=== PATIENT | female | born 1985 | race Caucasian/White ===

== ENCOUNTER → 2017-11-07 | Day surgery (SDC) | payer OTHER ==
[~2017-11-07] VITALS: Ht 157.5 cm; Wt 59.0 kg
[~2017-11-07] MED LIST: *HYDROmorphone PF 1 MG VIAL PERIprocedural Use ONLY ONE; *MEPERIDINE 25 MG INJ VIAL PERIprocedural Use ONLY ONE; *PROMETHAZINE 25 MG/ML VIAL PERIprocedural use ONLY ONE; ACETAMINOPHEN 325MG/HYDROcodone 7.5MG/15ML UDC ONE; CHLORHEXIDINE GLUCONATE 2 % 1 PACK (2 CLOTHS) TOPICAL PRN; CLINDAMYCIN 600 MG/NS PREMIX 50 ML IV PRN; DOXY0.02 PO; FAMOTIDINE 20 MG/2 ML VIAL ONE; HYDR1SOL3 PO; IBUP1TAB5 PO; LACTATED RINGER'S 1000 ML IV PRN; LACTCAP8 PO; LEVA500T33 PO; LIDOCAINE 1%/EPINEPHrine 1:100,000 SOLN 30 ML VIAL ONE; LIDOCAINE HCL 1% PF 5 ML SYRINGE OTHER ONE; METOPROLOL TARTRATE 25 MG TAB PO PRN; MICROFIBRILLAR COLLAGEN HEMOSTAT 1 GM PKT ONE; MIDAZOLAM HCL 2 MG/2 ML VIAL ONE; MONT10TA4 PO; MORPHINE SULFATE 8 MG/ML INJ ONE; OXYMETAZOLINE HCL 0.05% 15 ML NASAL SPRAY ONE; POVIDONE IODINE 5% (ANTISEPSIS KIT) 4 APPLICATIONS EACH NARE PRN; PROM1SUP7 RECTAL; PROPOFOL 200 MG/20 ML AMP IV ONE; SODIUM CHLORID 0.9% 500 ML IV PRN; UNIS25TA3 PO
[2017-11-07 12:31] VITALS: PULSE 94
[2017-11-07 13:30] VITALS: TEMP 97.6
[2017-11-07 16:00] VITALS: BP 143/101; PULSE 75; RESP 16; O2SAT 100
--- NOTE | 2017-11-17 08:14 | MP ---
cc: WESLEY RUTH MD DATE OF SURGERY 11/07/[address] Wesley ruth PREOPERATIVE DIAGNOSIS 1. Chronic pansinusitis 2. Nasal airway obstruction 3. Nasal septal deviation 4. Hypertrophy of inferior turbinates 5. Adenotonsillar hypertrophy 6. Chronic tonsillitis POSTOPERATIVE DIAGNOSIS 1. Chronic pansinusitis 2. Nasal airway obstruction 3. Nasal septal deviation 4. Hypertrophy of inferior turbinates 5. Adenotonsillar hypertrophy 6. Chronic tonsillitis OPERATION PERFORMED 1. Open repair nasal septal fracture. 2. Bilateral submucosal resection of inferior turbinates 3. Bilateral maxillary antrostomy 4. Bilateral endoscopic exploration of frontal sinus duct with balloon dilation 5. Bilateral endoscopic sphenoidotomy with balloon dilation 6. Adenotonsillectomy INDICATIONS Documented in the history and physical. DESCRIPTION OF OPERATION The patient was taken to OR #2 and placed in the supine position. Following induction of general anesthesia and intubation, the nose was packed bilaterally with cotton pledgets saturated in 0.05% Oxymetazoline. The septal mucosa and inferior turbinates were injected with a total of 80 mL of 1% Xylocaine with epinephrine 1:100,000. She was then prepped and draped for surgery. The packing was removed and a hemitransfixion incision was made in the left nasal vestibule and through this incision the mucosa of septum was elevated bilaterally as far as the junction of the bony and cartilaginous septum. This exposed the quadrangular cartilage which showed evidence of old septal fracture. Comminuted fragments of the fracture cartilage were extending into the nasal airway bilaterally. An accumulative area of 1.5 x 2 cm was removed preserving 1.5 cm dorsal and caudal cartilaginous struts. When this was completed, the mucosa was elevated from the bony septum and the maxillary crest and these were removed using Luis Ferguson forceps. The incision was then closed with a running suture of 4-0 chromic and the mucosal layers of the septum were approximated to each other with a quilting stitch of 4-0 plain gut. The inferior turbinates were then fractured out medially and stab incisions were made along their inferior surfaces through these incisions. The submucosal soft tissue was reduced using a curette and preserving the conchal bone. The incision was then cauterized using the suction Bovie at 35 mills and the remnants of the inferior turbinates were then outfractured using a Javier nasal speculum. From this point, the operation within the nose was completed using endoscopic visualization. Additional injections of lidocaine and epinephrine were made into the middle turbinates, the uncinate processes and the ethmoid cells and then beginning with the left side, the dilations of sinus ducts was undertaken. The left frontal was addressed first with the guidewire advanced into the left frontal duct and sinus and the balloon advanced over the guidewire and inflated to a pressure of 12 atmospheres superiorly at the midpoint and at the inferior limit of the frontal duct at each level to a pressure of 12 atmospheres. The balloon was then removed and the duct was verified patent all the way into the frontal sinus. The right frontal duct was then also operated in the same fashion. It was verified patent. Next, the maxillary sinuses ostia were dilated using the balloon technique. A guidewire was advanced through the infundibulum into the left maxillary sinus. The balloon was then advanced into the maxillary infundibulum and inflated to a pressure of 12 atmospheres. It was then removed and the right side was operated in the same fashion. Lastly, the balloon technique was used to dilate the sphenoid sinus ostia. These were verified patent using a 0 degrees scope. The balloon was then removed. All sinuses were then irrigated with saline and were suctioned. The nose was then packed with 5.5 cm rapid rhino packs inflated with 5 mL of air. The table was then turned 90 degrees and a shoulder roll and McIvor mouth gag were put in placed and the adenotonsillectomy was undertaken. Using the Coblator technique, the tonsils were removed on both sides. There were small areas of bleeding cauterized using the bipolar cautery on the left side and the bipolar as well as monopolar cautery on the right. When this was completed, inspection of the adenoids showed there to be a mild hypertrophy present and this was removed using the suction Bovie at 45 mills. The stomach was aspirated of several cc's of bilious gastric contents using a #18 [place] sump NG tube and when this was completed, the mouth gag was removed and the procedure was terminated. The patient was reversed from anesthesia and taken to recovery in good condition. There were no complications. Blood loss was 200 mL. MD CLEMENT Cornell/WILBERT /6:45 AM /8:01 AM
== END | disposition home or self-care (01) ==
LOC: PHSDC 08:01
PROVIDERS: ATTEND Otolaryngology
DX: J32.4 Chronic pansinusitis (principal); J34.2 Deviated nasal septum; J34.3 Hypertrophy of nasal turbinates; J34.89 Other specified disorders of nose and nasal sinuses; J35.01 Chronic tonsillitis; J35.03 Chronic tonsillitis and adenoiditis
CPT/HCPCS: 00160; 30140; 30520; 31256; 31297; 42821; 88304; J1170; J2175; J2250; J2270; J2550; J3010; J7120